=== PATIENT | female | born 1995 | race Two or more races ===

== ENCOUNTER 2023-02-20 10:44 | Outpatient (CLI) | payer OTHER, SELFPAY | END 2023-02-20 10:45 | disposition home or self-care (01) | PROVIDERS: PCP Family Medicine; Visit Provider Internal Medicine | DX: R53.83 Other fatigue (principal); E55.9 Vitamin D deficiency, unspecified; E66.9 Obesity, unspecified; G25.81 Restless legs syndrome; F41.9 Anxiety disorder, unspecified | CPT/HCPCS: 80053; 83540; 83550; 84443 ==

== ENCOUNTER 2023-05-16 10:48 | Outpatient (CLI) | payer OTHER, SELFPAY | END 2023-05-16 10:49 | disposition home or self-care (01) | PROVIDERS: PCP Internal Medicine; Visit Provider Internal Medicine | DX: E61.1 Iron deficiency (principal) | CPT/HCPCS: 80048; 83540; 83550 ==

== ENCOUNTER 2024-05-23 15:35 | Outpatient (CLI) | payer OTHER, SELFPAY ==
[2024-05-25 22:10] LABS: HPV Source Cervix; HPV, High Risk by TMA Not Detected
== END 2024-05-23 15:36 | disposition home or self-care (01) ==
PROVIDERS: PCP Internal Medicine; Visit Provider Physician Assistant
DX: N92.0 Excessive and frequent menstruation with regular cycle (principal); Z12.4 Encounter for screening for malignant neoplasm of cervix
CPT/HCPCS: 84443; 87624; 87625; 88141; 88142

== ENCOUNTER 2024-05-30 07:40 | Outpatient (CLI) | payer OTHER, SELFPAY | END 2024-05-30 07:41 | disposition home or self-care (01) | LOC: NFLDREF 06-01 02:37 | PROVIDERS: PCP Internal Medicine; Referring Provider Internal Medicine; Visit Provider Physician Assistant | DX: N92.0 Excessive and frequent menstruation with regular cycle (principal); Z13.1 Encounter for screening for diabetes mellitus; Z13.6 Encounter for screening for cardiovascular disorders | CPT/HCPCS: 80061; 82947 ==

== ENCOUNTER 2024-06-05 07:47 | Outpatient (CLI) | payer OTHER, SELFPAY | END 2024-06-05 07:48 | disposition home or self-care (01) | LOC: NFLDREF 06-08 04:46 | PROVIDERS: PCP Internal Medicine; Referring Provider Internal Medicine; Visit Provider Physician Assistant | DX: R73.03 Prediabetes (principal) | CPT/HCPCS: 82947 ==

== ENCOUNTER 2024-08-15 13:57 | Outpatient (CLI) | payer OTHER, SELFPAY | END 2024-08-15 13:58 | disposition home or self-care (01) | LOC: NFLDREF 08-20 23:15 | PROVIDERS: PCP Internal Medicine; Referring Provider Internal Medicine; Visit Provider Physician Assistant | DX: N39.0 Urinary tract infection, site not specified (principal); B96.89 Other specified bacterial agents as the cause of diseases classified elsewhere | CPT/HCPCS: 87086 ==